=== PATIENT | female | born 1995 | race African-American/Black ===

== ENCOUNTER 2019-03-17 12:07 | Inpatient (IN) | payer OTHER, BC ==
--- NOTE | 2019-03-17 12:28 | PDOC ---
History of Present Illness - General Chief Complaint: Pain Stated Complaint: ABD PAIN Time Seen by Provider: 03/17/19 12:19 History Source: Patient Exam Limitations: No Limitations - History of Present Illness Initial Comments: 03/17/19 13:08 Ms. Fam is a 23 y/o woman with hx asthma p/w two days of nausea, vomiting, abdominal pain, and diarrhea. She reports that everything began at once, and that she has had difficulty keeping down any food or water. Her last meal was chicken and fries yesterday at 1400. She reports that the pain has been constant , 10/10, stabbing pain to the lower quadrants. She reports several episodes of non-bloody non-billious vomiting over the last two days, with 5 two days ago, and 3 yesterday. She reports decreased appetite. She denies any difference in her ability to tolerate solid versus liquid food intake. She endorses fatigue, and weakness in addition to abdominal pain. She denies any fevers, chills, fatigue, chest pain, difficulty breathing. She reports passing stool and flatus normally. She denies any dysuria, hematuria, increased frequency of urination, or pain with defecation. Of note, patient reports a history of HSV that she requests we do not discuss in front of her parents who do not know the diagnosis. Timing/Duration: other (two days) Severity: moderate, severe Associated Symptoms: reports: nausea/vomiting, syncope, weakness, other ( diarrhea) Past History - Past Medical History Allergies/Adverse Reactions: Allergies Allergy/AdvReac Type Severity Reaction Status Date / Time No Known Allergies Allergy Verified 03/17/19 12:14 Home Medications: Ambulatory Orders NK [No Known Home Medication] 03/17/19 COPD: No - Suicide/Smoking/Psychosocial Hx Smoking History: Never smoked Have you smoked in the past 12 months: No Information on smoking cessation initiated: No Hx Alcohol Use: No Drug/Substance Use Hx: No Review of Systems - Review of Systems Constitutional: Yes: See HPI, Chills, Loss of Appetite, Weakness. No: Diaphoresis, Fever, Night Sweats HEENTM: Yes: See HPI. No: Recent change in vision, Double Vision, Difficulty Swallowing Respiratory: Yes: See HPI. No: Cough, Orthopnea, Shortness of Breath, Stridor, Wheezing Cardiac (ROS): Yes: See HPI. No: Chest Pain, Edema, Lightheadedness, Palpitations ABD/GI: Yes: See HPI, Diarrhea, Nausea, Poor Appetite, Poor Fluid Intake, Vomiting, Abdominal cramping. No: Abdominal Distended, Abd. Pain w/ defecation , Blood Streaked Bowels, Difficulty Swallowing : Yes: See HPI. No: Burning, Dysuria, Discharge, Frequency, Hematuria Integumentary: Yes: See HPI. No: Rash Neurological: Yes: See HPI, Weakness. No: Headache, Numbness *Physical Exam - Vital Signs Last Vital Signs Temp Pulse Resp BP Pulse Ox 97.3 F L 62 16 116/76 100 03/17/19 12:10 03/17/19 12:10 03/17/19 12:10 03/17/19 12:10 03/17/19 12:10 - Physical Exam General Appearance: Yes: Nourished, Appropriately Dressed, Apparent Distress, Moderate Distress HEENT: positive: EOMI, KYLE Neck: positive: Trachea midline Respiratory/Chest: positive: Lungs Clear, Normal Breath Sounds. negative: Chest Tender, Respiratory Distress, Accessory Muscle Use, Labored Respiration, Rapid RR Cardiovascular: positive: Regular Rhythm, Regular Rate, S1, S2. negative: Edema , JVD, Murmur Gastrointestinal/Abdominal: positive: Normal Bowel Sounds, Tender, Flat, Soft. negative: Organomegaly, Pulsatile Mass, Increased Bowel Sounds, Decreased BS Integumentary: positive: Normal Color, Dry, Warm. negative: Rash Neurologic: positive: Motor Strength 5/5. negative: Sensory Deficit ED Treatment Course - LABORATORY CBC & Chemistry Diagram: 03/19/19 05:43 03/19/19 05:43 Medical Decision Making - Medical Decision Making 03/17/19 14:16 Ms. Armas is a 23 y/o woman presenting with 2 days of ongoing nausea, vomiting, diarrhea. Differential includes colitis, SBO, IBD, IBS. Colitis most likely given new onset diarrhea with nausea and left sided abdominal pain, but cannot rule out obstruction. Plan: IV normal saline bolus CBC w diff CMP CT abdomen pelvis Morphine 2 mg for pain Zofran 4 mg nausea Omeprazole 20 mg Dispo: Likely discharge - Colitis noted on CT abdomen/pelvis. Patient has remained nauseated and continues to vomit x4 in ED. If nausea, pain persists plan to admit to hospital , family uncomfortable with at home care given patient distress and ongoing symptoms. - Patient symptoms persist, plan for inpatient admission. *DC/Admit/Observation/Transfer Diagnosis at time of Disposition: Colitis Intractable vomiting Qualifiers: Vomiting type: unspecified Nausea presence: with nausea Qualified Code(s): R11.2 - Nausea with vomiting, unspecified - Discharge Dispostion Condition at time of disposition: Stable Decision to Admit order: Yes - Referrals - Patient Instructions - Post Discharge Activity
[2019-03-17] MEDS ORDERED: ONDANSETRON 4 MG/2 ML VIAL IVPB ONE (12:52)
[2019-03-17] MEDS ORDERED: ACETAMINOPHEN 1000 MG/100 ML VIAL (NON FORMULARY) IVPB ONE (12:52)
[2019-03-17] MEDS ORDERED: ACETAMINOPHEN INJECTION 100 ML IVPB ONE (12:58)
[2019-03-17] MEDS ORDERED: ONDANSETRON 4 MG/2 ML VIAL IVPUSH ONE (12:58)
[2019-03-17] MEDS ORDERED: ONDANSETRON 4 MG/2 ML VIAL ONE (12:58)
[2019-03-17] MEDS ORDERED: SODIUM CHLORIDE 0.9% 500 ML INFUS.BAG IV ONE (13:01)
[2019-03-17 13:18] LABS: BASO % 0.1 % (0-2.0); EOS % 0.1 % (0-4.5); HEMATOCRIT 44.6 % (32.4-45.2); HEMOGLOBIN 14.5 GM/dL (10.7-15.3); LYMPH % 2.1 % (8-40); MCH 27.5 pg (25.7-33.7); MCHC 32.4 g/dl (32.0-36.0); MEAN CELL VOLUME 84.7 fl (80-96); MEAN PLT VOLUME 7.8 fl (7.5-11.1); MONO % 8.1 % (3.8-10.2); NEUT % 89.6 % (42.8-82.8); PLATELET COUNT 309 K/MM3 (134-434); RBC 5.26 M/mm3 (3.60-5.2); RDW 13.9 % (11.6-15.6); WHITE BLOOD COUNT 14.6 K/mm3 (4.0-10.0)
[2019-03-17] MEDS ORDERED: morphine CARPU-JECT 2 MG/1 ML DISP.SYRIN IVPUSH ONE ×2 (13:21→21:17)
[2019-03-17] MEDS ORDERED: METOCLOPRAMIDE HCL INJECTION 10 MG/2 ML VIAL IVPUSH ONE (13:33)
[2019-03-17] MEDS ORDERED: morphine CARPU-JECT 4 MG/1 ML DISP.SYRIN IVPUSH ONE (13:33)
[2019-03-17] MEDS ORDERED: morphine SULFATE 4 MG/ML VIAL ONE (13:34)
[2019-03-17] MEDS ORDERED: METOCLOPRAMIDE HCL INJECTION 10 MG/2 ML VIAL ONE (13:34)
[2019-03-17 13:50] LABS: ALBUMIN 4.1 g/dl (3.4-5.0); BILIRUBIN,TOTAL 0.8 mg/dL (0.2-1); CALCIUM 9.2 mg/dL (8.5-10.1); POTASSIUM 4.6 mmol/L (3.5-5.1); TOT PROT 7.8 g/dl (6.4-8.2)
--- NOTE | 2019-03-17 15:06 | PDOC ---
Documentation entered by Pepper Acevedo SCRIBE, acting as scribe for Amna Morales MD. Amna Morales MD: This documentation has been prepared by the Curtis charles Sammi, SCRIBE, under my direction and personally reviewed by me in its entirety. I confirm that the documentation accurately reflects all work, treatment, procedures, and medical decision making performed by me. Attending Attestation - Resident Resident Name: RickyclementeBabar - ED Attending Attestation I have performed the following: I have examined & evaluated the patient, The case was reviewed & discussed with the resident, I agree w/resident's findings & plan, Exceptions are as noted - HPI HPI: 03/17/19 13:34 The patient is a 23 year old female, with no significant PMH, who presents to the emergency department for evaluation of 2 days of nausea, vomiting, and LLQ abdominal pain. The patient reports 3 episodes of non-bilious, non bloody vomit yesterday, and 9 episodes of vomit today. She also notes several episodes of non -bloody diarrhea. She also reports fatigue, chills, and subjective fever. The patient states her last oral intake was around 2pm yesterday. The patient denies chest pain, shortness of breath, headache and dizziness. Denies dysuria, frequency, urgency and hematuria. Allergies: NKA - Physicial Exam PE: 03/17/19 12:44 GENERAL: Riving in pain, uncomfortable ENT: (+)Dry mucous membranes. Ears normal, nares patent, oropharynx clear without exudates. . NECK: Normal range of motion, supple LUNGS: Breath sounds equal, clear to auscultation bilaterally. No wheezes, and no crackles. HEART:Regular rate and rhythm, normal S1 and S2 without murmur, rub or gallop. ABDOMEN: (+)Tender diffusely, mostly LLQ. Soft, normoactive bowel sounds. EXTREMITIES: Normal range of motion, no edema. NEUROLOGICAL: Cranial nerves II through XII grossly intact. Normal speech. No focal neurological deficits. SKIN: Warm, Dry, normal turgor, no rashes or lesions noted. - Medical Decision Making 03/17/19 15:05 23 yo F presenting to the ER with severe abdominal pain, nausea, vomiting, diarrhea Laboratory Tests 03/17/19 03/17/19 03/17/19 13:01 13:01 13:01 WBC 14.6 H Hgb 14.5 Hct 44.6 Plt Count 309 BUN 15.0 Creatinine 1.0 Serum , Qual Negative EKG - Twelve-lead EKG was performed and reviewed by me. There is normal sinus rhythm with a normal rate. The axis is normal. The intervals are normal. There are no ST or T wave abnormalities. Impression: Normal twelve-lead EKG 03/17/19 15:13 U/S: No sonographic evidence of torsion, non specific asymmetric blood flow and resistive index between the right and left ovaries, likely due to menstruation ovarian dominance IUD in lower uterine segment/cervix CT pending 03/17/19 16:50 Pt failed PO challenge Will CT Signed out to Dr Reyna
[2019-03-17 16:43] LABS: URINE APPEARANCE CLEAR; URINE BILIRUBIN NEGATIVE (NEGATIVE); URINE COLOR YELLOW; URINE GLUCOSE (UA) NEGATIVE (NEGATIVE); URINE KETONE 1+ (NEGATIVE); URINE LEUK ESTERASE NEGATIVE (NEGATIVE); URINE NITRITE NEGATIVE (NEGATIVE); URINE PROTEIN NEGATIVE (NEGATIVE); URINE UROBILINOGEN 0.2 mg/dL (0.2-1.0)
[2019-03-17] MEDS ORDERED: FAMOTIDINE 20 MG/50 ML IVPB 20 MG/50 ML MG IVPB ONE ×2 (20:37→20:51)
[2019-03-17] MEDS ORDERED: MAG HYDROX/AL HYDROX/SIMETH 30 ML UNIT-DOSE CUP PO ONE (20:40)
[2019-03-17] MEDS ORDERED: MAG HYDROX/AL HYDROX/SIMETH 30 ML UNIT-DOSE CUP ONE (20:51)
[2019-03-17] MEDS ORDERED: PIPERACILLIN/TAZOB 3.375 GM 3.375 GM in DEXTROSE 5%-WATER - 50 ML IVPB ONE (21:16)
[2019-03-17] MEDS ORDERED: PIPERACILLIN/TAZOB 3.375 GM 3.375 GM/50 ML BAG IVPB ONE (21:49)
[2019-03-17] MEDS ORDERED: MORPHINE SULFATE 2 MG/ML VIAL ONE (21:49)
[2019-03-17] MEDS ORDERED: LACTATED RINGERS SOLUTION 1,000 ML IV SCH (22:45)
--- NOTE | 2019-03-17 23:02 | HP ---
CHIEF COMPLAINT: Vomiting, diarrhea HISTORY OF PRESENT ILLNESS: The patient is a 23 year old female with PMHx of mild intermittent asthma who presents to the ED with two days of persistent nausea, vomiting, diarrhea, and abd pain. Symptoms began all at once. She has been unable to keep food or liquids down since onset of symptoms. Her last meal was 2 days ago. Pt complains of left-sided abd pain, as well as dizziness and "shaking" prior to her vomiting episodes. She denies any blood in her vomit or diarrhea. Pt has been afebrile. No sick contacts or recent travel. No recent alcohol or drug use. LMP 2 weeks ago. ER course was notable for: (1) CT abd: acute colitis, transvaginal US: no torsion (2) WBC 14.6 (3) Persistent pain s/p morphine, zofran, metoclopramide (4) Given one dose of zosyn Recent Travel: Denies PAST MEDICAL HISTORY: Mild intermittent asthma (no medications) PAST SURGICAL HISTORY: None Social History: Smoking: Denies Alcohol: Occasionally (last drink one week ago) Drugs: Occasional marijuana use (last use 3 days ago) Family History: Mother: HTN, hypercholesterol, DM, CAD Father: HTN Allergies: No Known Allergies Allergy (Verified 03/17/19 12:14) HOME MEDICATIONS: Home Medications Medication Instructions Recorded NK [No Known Home Medication] 03/17/19 REVIEW OF SYSTEMS CONSTITUTIONAL: Chills, generalized weakness, malaise, loss of appetite Absent: fever, diaphoresis, weight change HEENT: Absent: rhinorrhea, nasal congestion, throat pain, throat swelling, difficulty swallowing, mouth swelling, ear pain, eye pain, visual changes CARDIOVASCULAR: lightheadedness Absent: chest pain, syncope, palpitations, irregular heart rate, peripheral edema RESPIRATORY: Absent: cough, shortness of breath, dyspnea with exertion, orthopnea, wheezing, stridor, hemoptysis GASTROINTESTINAL: left-sided abdominal pain, nausea, vomiting, diarrhea Absent: abdominal distension, constipation, melena, hematochezia GENITOURINARY: Absent: dysuria, frequency, urgency, hesitancy, hematuria, flank pain, genital pain MUSCULOSKELETAL: Absent: myalgia, arthralgia, joint swelling, back pain, neck pain SKIN: Absent: rash, itching, pallor HEMATOLOGIC/IMMUNOLOGIC: Absent: easy bleeding, easy bruising, lymphadenopathy, frequent infections ENDOCRINE: Absent: unexplained weight gain, unexplained weight loss, heat intolerance, cold intolerance NEUROLOGIC: dizziness Absent: headache, focal weakness or paresthesias, unsteady gait, seizure, mental status changes, bladder or bowel incontinence PSYCHIATRIC: Absent: anxiety, depression, suicidal or homicidal ideation, hallucinations. PHYSICAL EXAMINATION Vital Signs - 24 hr 03/17/19 03/17/19 12:10 20:05 Temperature 97.3 F L 98.2 F Pulse Rate 62 Pulse Rate [ 84 Left] Respiratory 16 21 H Rate Blood Pressure 116/76 Blood Pressure 135/73 [Left] O2 Sat by Pulse 100 98 Oximetry (%) GENERAL: Awake, alert, and fully oriented. Pt laying on side in obvious pain. HEAD: Normal with no signs of trauma. EYES: Pupils equal, round and reactive to light, extraocular movements intact, sclera anicteric, conjunctiva clear. No lid lag. EARS, NOSE, THROAT: Ears normal, nares patent, oropharynx clear without exudates. Moist mucous membranes. NECK: Normal range of motion, supple without lymphadenopathy, JVD, or masses. LUNGS: Breath sounds equal, clear to auscultation bilaterally. No wheezes, and no crackles. No accessory muscle use. HEART: Slightly tachycardic, normal rhythm, normal S1 and S2 without murmur, rub or gallop. ABDOMEN: Left-sided tenderness and mild guarding, soft, not distended, normoactive bowel sounds, no rebound, no masses. No hepatomegaly or splenomegaly. MUSCULOSKELETAL: Normal range of motion at all joints. No bony deformities or tenderness. No CVA tenderness. UPPER EXTREMITIES: 2+ pulses, warm, well-perfused. No cyanosis. No clubbing. No peripheral edema. LOWER EXTREMITIES: 2+ pulses, warm, well-perfused. No calf tenderness. No peripheral edema. NEUROLOGICAL: Normal gait. PSYCHIATRIC: Cooperative. Good eye contact. Appropriate mood and affect. SKIN: Warm, dry, normal turgor, no rashes or lesions noted, normal capillary refill. Laboratory Results - last 24 hr 03/17/19 03/17/19 03/17/19 13:01 13:01 13:01 WBC 14.6 H RBC 5.26 H Hgb 14.5 Hct 44.6 MCV 84.7 MCH 27.5 MCHC 32.4 RDW 13.9 Plt Count 309 MPV 7.8 Absolute Neuts (auto) 13.1 H Neutrophils % 89.6 H Lymphocytes % 2.1 L Monocytes % 8.1 Eosinophils % 0.1 Basophils % 0.1 Nucleated RBC % 0 Sodium 143 Potassium 4.6 Chloride 113 H Carbon Dioxide 24 Anion Gap 6 L BUN 15.0 Creatinine 1.0 Est GFR (CKD-EPI)AfAm 90.68 Est GFR (CKD-EPI)NonAf 78.24 Random Glucose 123 H Calcium 9.2 Total Bilirubin 0.8 AST 20 ALT 28 Alkaline Phosphatase 49 Total Protein 7.8 Albumin 4.1 Serum , Qual Negative Urine Color Urine Appearance Urine pH Ur Specific Somers Urine Protein Urine Glucose (UA) Urine Ketones Urine Blood Urine Nitrite Urine Bilirubin Urine Urobilinogen Ur Leukocyte Esterase 03/17/19 16:03 WBC RBC Hgb Hct MCV MCH MCHC RDW Plt Count MPV Absolute Neuts (auto) Neutrophils % Lymphocytes % Monocytes % Eosinophils % Basophils % Nucleated RBC % Sodium Potassium Chloride Carbon Dioxide Anion Gap BUN Creatinine Est GFR (CKD-EPI)AfAm Est GFR (CKD-EPI)NonAf Random Glucose Calcium Total Bilirubin AST ALT Alkaline Phosphatase Total Protein Albumin Urine Color Yellow Urine Appearance Clear Urine pH 5.0 Ur Specific Somers 1.017 Urine Protein Negative Urine Glucose (UA) Negative Urine Ketones 1+ H Urine Blood Negative Urine Nitrite Negative Urine Bilirubin Negative Urine Urobilinogen 0.2 Ur Leukocyte Esterase Negative ASSESSMENT/PLAN: Pt is a 23 y/o F with PMHx of mild asthma who presents with intractable vomiting , diarrhea, nausea, and abdominal pain for 2 days. #Colitis Ceftriaxone 1g Q24 and metronidazole 500mg Q8 IV Tylenol prn for pain IV zofran prn for nausea Monitor CBC, CMP, and vitals F/u urine culture #Mild asthma Albuterol neb prn #IUD malposition (per CT pelvis) House Detective consult #DVT prophylaxis Lovenox 40mg SQ daily #FEN IVF NS @ 125 ml/hr Clear liquid diet, advance as tolerated Replete electrolytes as needed #Dispo Med surg Visit type - Emergency Visit Emergency Visit: Yes ED Registration Date: 03/17/19 Care time: The patient presented to the Emergency Department on the above date and was hospitalized for further evaluation of their emergent condition. - New Patient This patient is new to me today: Yes Date on this admission: 03/18/19 - Critical Care Critical Care patient: No
[2019-03-18 02:07] VITALS: BMI 22.4
[2019-03-18] MEDS ORDERED: ALBUTEROL SO4 0.083% IH SOL 2.5 MG/3 ML VIAL.NEB. NEB PRN (02:47)
[2019-03-18] MEDS ORDERED: ONDANSETRON 4 MG/2 ML VIAL IVPB PRN (02:55)
[2019-03-18] MEDS: SODIUM CHLORIDE 1,000 ML IV SCH ×2 (03:27→13:04)
--- NOTE | 2019-03-18 07:48 | PN ---
Teaching Attending Note Name of Resident: Catherine Bocanegra ATTENDING PHYSICIAN STATEMENT I saw and evaluated the patient. I reviewed the resident's note and discussed the case with the resident. I agree with the resident's findings and plan as documented. SUBJECTIVE: 23 year old woman previously healthy c/o 2 days of nausea, nonbloody vomiting, diarrhea ( over 10x day), left sided abdominal pain. Denied travel or fevers. + leukocytosis, CT abd/pelvis showed colon wall thickening c/w colitis. Unable to hold her food down. Denied using antibiotics prior to er visit. Neg bhcg in er. Given zosyn. OBJECTIVE: Last Vital Signs Temp Pulse Resp BP Pulse Ox 99.1 F 70 18 104/56 L 100 03/18/19 06:03 03/18/19 06:03 03/18/19 06:03 03/18/19 06:03 03/17/19 23:36 general- nontoxic heent- moist mucous membranes neck supple cor -s1+s2+ rrr abd - soft, bs+, benign skin - good turgor Abnormal Lab Results 03/17/19 03/17/19 03/17/19 13:01 13:01 16:03 WBC 14.6 H RBC 5.26 H Absolute Neuts (auto) 13.1 H Neutrophils % 89.6 H Lymphocytes % 2.1 L Chloride 113 H Anion Gap 6 L Random Glucose 123 H Urine Ketones 1+ H ASSESSMENT AND PLAN: #C-litis, leukocytoposis - will treat with antibiotics based on high frequency of in BMs -send stool culture, wbc, leukocytes, stool for cdiff pcr -flagyl -ceftriaxone -iv fluid hydration -zofran prn if nausea or vomiting -clear liquid diet -ekg #displaced IUD on abd/pelvis ct -consult obgyn for possible adjustment dvt ppx with scds
[2019-03-18 08:24] LABS: BASO % 0.4 % (0-2.0); EOS % 0.2 % (0-4.5); HEMATOCRIT 38.1 % (32.4-45.2); HEMOGLOBIN 12.4 GM/dL (10.7-15.3); LYMPH % 13.4 % (8-40); MCH 27.2 pg (25.7-33.7); MCHC 32.5 g/dl (32.0-36.0); MEAN CELL VOLUME 83.5 fl (80-96); MEAN PLT VOLUME 8.1 fl (7.5-11.1); MONO % 9.5 % (3.8-10.2); NEUT % 76.5 % (42.8-82.8); RBC 4.57 M/mm3 (3.60-5.2); RDW 13.8 % (11.6-15.6); WHITE BLOOD COUNT 11.7 K/mm3 (4.0-10.0)
--- NOTE | 2019-03-18 09:08 | PN ---
Progress Note (short form) - Note Progress Note: Patient is lying in bed with no acute distress, no nausea or vomiting. feels better. Mother and father at bedside. Vital Signs Temperature 99.1 F 03/18/19 06:03 Pulse Rate 70 03/18/19 06:03 Respiratory Rate 18 03/18/19 06:03 Blood Pressure 104/56 L 03/18/19 06:03 O2 Sat by Pulse Oximetry (%) 100 03/17/19 23:36 GENERAL: The patient is awake, alert, and fully oriented, in no acute distress. HEAD: Normal with no signs of trauma. EYES: PERRL, extraocular movements intact, sclera anicteric, conjunctiva clear. ENT: Ears normal, oropharynx clear without exudates, moist mucous membranes. NECK: Trachea midline, full range of motion, supple. LUNGS: Breath sounds equal, clear to auscultation bilaterally, no wheezes, no crackles, no accessory muscle use. HEART: Regular rate and rhythm, S1, S2 without murmur, rub or gallop. ABDOMEN: Soft, mild diffuse tenderness, ND, normoactive bowel sounds, no guarding, no rebound, no hepatosplenomegaly, no masses. EXTREMITIES: 2+ pulses, warm, well-perfused, no edema. NEUROLOGICAL: Cranial nerves II through XII grossly intact. Normal speech, gait not observed. PSYCH: Normal mood, normal affect. SKIN: Warm, dry, normal turgor, no rashes or lesions noted CBCD WBC 14.6 K/mm3 (4.0-10.0) H 03/17/19 13:01 RBC 5.26 M/mm3 (3.60-5.2) H 03/17/19 13:01 Hgb 14.5 GM/dL (10.7-15.3) 03/17/19 13:01 Hct 44.6 % (32.4-45.2) 03/17/19 13:01 MCV 84.7 fl (80-96) 03/17/19 13:01 MCHC 32.4 g/dl (32.0-36.0) 03/17/19 13:01 RDW 13.9 % (11.6-15.6) 03/17/19 13:01 Plt Count 309 K/MM3 (134-434) 03/17/19 13:01 MPV 7.8 fl (7.5-11.1) 03/17/19 13:01 CMP Sodium 143 mmol/L (136-145) 03/17/19 13:01 Potassium 4.6 mmol/L (3.5-5.1) 03/17/19 13:01 Chloride 113 mmol/L (98-107) H 03/17/19 13:01 Carbon Dioxide 24 mmol/L (21-32) 03/17/19 13:01 Anion Gap 6 MMOL/L (8-16) L 03/17/19 13:01 BUN 15.0 mg/dL (7-18) 03/17/19 13:01 Creatinine 1.0 mg/dL (0.55-1.3) 03/17/19 13:01 Random Glucose 123 mg/dL (74-106) H 03/17/19 13:01 Calcium 9.2 mg/dL (8.5-10.1) 03/17/19 13:01 Total Bilirubin 0.8 mg/dL (0.2-1) 03/17/19 13:01 AST 20 U/L (15-37) 03/17/19 13:01 ALT 28 U/L (13-61) 03/17/19 13:01 Alkaline Phosphatase 49 U/L (45-117) 03/17/19 13:01 Total Protein 7.8 g/dl (6.4-8.2) 03/17/19 13:01 Albumin 4.1 g/dl (3.4-5.0) 03/17/19 13:01 Current Medications Generic Name Dose Route Start Last Admin Trade Name Brittany PRN Reason Stop Dose Admin Acetaminophen 1,000 mg 03/18/19 02:36 Ofirmev Injection - IVPB Q6H PRN PAIN LEVEL 4 - 6 Albuterol Sulfate 1 amp 03/18/19 02:47 Ventolin 0.083% Nebulizer Soln - NEB Q8H PRN SHORT OF BREATH/WHEEZING Ceftriaxone Sodium 1 gm/ 50 mls @ 100 mls/hr 03/18/19 10:00 Dextrose IVPB DAILY LAURE Protocol Metronidazole 500 mg in 100 mls @ 100 mls/hr 03/18/19 10:00 Flagyl 500mg Premixed Ivpb - IVPB Q8H-IV LAURE Sodium Chloride 1,000 mls @ 125 mls/hr 03/18/19 03:00 03/18/19 03:27 Normal Saline - IV 125 mls/hr ASDIR LAURE Administration Ondansetron HCl 4 mg 03/18/19 02:55 Zofran Injection IVPB Q6H PRN NAUSEA Home Medications Medication Instructions Recorded NK [No Known Home Medication] 03/17/19 Cat Scan: Report Reviewed ( Final Report CT ABDOMEN & PELVIS CT WITH CONTR Show Printer-Friendly Version Patient Name: [place] Che : Apr-1995 ID: [id number] Study Date: 17-Mar-2019 18:33 [facility] Name: [facility] DEPARTMENT OF RADIOLOGY Phys: Kandy Gill RESIDENT : 1995 Age: 23 Sex: F [facility] Acct: [id number] Loc: [address] Exam Date: 03/17/19 Status: [place] [address] Unit Number: [id number] EXAM#: TYPE/EXAM: RESULT: [id number] CT/ABDOMEN PELVIS CT WITH CONTR Abdomen and pelvis CT with contrast Clinical information: left abdominal TTP, ? colitis; not tolerating po Multiplanar imaging was performed following the intravenous administration of nonionic contrast. Enteric contrast was not administered. No evidence of pneumoperitoneum, abscess, free intraperitoneal fluid or bowel obstruction. Bowel evaluation especially of the colon is very limited due to lack of distention. There is possible mild diffuse colonic wall thickening. No definite pericolonic edema or fluid accumulation is seen. There is no gross adnexal pathology allowing for contiguous obscuring nonopacified small bowel loops. The urinary bladder demonstrates no obvious intrinsic or extrinsic CT abnormality. No gross noncontrast small bowel pathology is identified. There is possible partial visualization of the appendix which demonstrates no gross abnormality. No obvious indirect CT signs of acute appendicitis are noted. There is no obvious acute diverticulitis. As also described on recently performed sonography an IUD is seen in place at the level of the lower uterine segment extending into the cervical canal consistent with malposition. The liver, spleen, pancreas , gallbladder, adrenal glands and kidneys demonstrate no discrete abnormality. There is no aortic aneurysm. No gross lymphadenopathy is identified. Numerous bilateral buttock subcutaneous densities are seen which may be on a postsurgical basis. Correlate clinically. The visualized osseous structures demonstrate no obvious CT evidence of acute pathology. Impression: Bowel evaluation is very limited due to lack of distention. There is possible mild diffuse concentric colonic wall thickening on the basis of acute colitis (versus representing artifactual mild thickening due to underdistention). IUD malposition. Reported By: Major Regan MD 01/29 Kandy Gill Technologist: Shamar Ayala Transcribed Date /Time: 03/17/192102 Curriculum Development Specialist: Major Regan Printed Date/Time: By: Signed by: Major Regan Signed on: 17-Mar-2019 21:04) Assessment and plan: Patient is a 23 year old female no significant PMHx presented with 2 days hx of nausea, nonbloody vomiting, diarrhea (over 10x day), with left sided abdominal pain. Denied any travel hx. 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 DVT px: early Ambulation Visit type - Emergency Visit Emergency Visit: Yes ED Registration Date: 03/18/19 Care time: The patient presented to the Emergency Department on the above date and was hospitalized for further evaluation of their emergent condition. - New Patient This patient is new to me today: Yes Date on this admission: 03/18/19 - Critical Care Critical Care patient: No - Discharge Referral Referred to [facility] No
[2019-03-18 09:15] LABS: PLATELET COUNT 285 K/MM3 (134-434)
[2019-03-18 09:16] LABS: ALBUMIN 3.4 g/dl (3.4-5.0); BILIRUBIN,TOTAL 0.8 mg/dL (0.2-1); BLOOD UREA NITROGEN 10.2 mg/dL (7-18); CALCIUM 8.3 mg/dL (8.5-10.1); CREATININE 0.8 mg/dL (0.55-1.3); MAGNESIUM 2.1 mg/dL (1.8-2.4); PHOSPHOROUS 3.8 mg/dL (2.5-4.9); POTASSIUM 3.9 mmol/L (3.5-5.1); TOT PROT 6.6 g/dl (6.4-8.2)
[2019-03-18] MEDS ORDERED: cefTRIAXone SODIUM 1 GM VIAL ONE (09:43)
[2019-03-18] MEDS ORDERED: DEXTROSE 5%-WATER - 50 ML IVPB ONE (09:44)
[2019-03-18] MEDS ORDERED: ENOXAPARIN NA (PORCINE) 40 MG/0.4 ML DISP.SYRIN SQ SCH (10:00)
--- NOTE | 2019-03-18 10:23 | CONSULT ---
Consult - text type - Consultation Consultation Note: 23yo G0 here with abdominal pain. Of note, CT scan showed IUD in the improper placed. TVUS confirmed that the IUD was in the lower uterine segment. Patient is without uterine cramping. States that this is her second Mirena IUD and that the initial one, was also placed improperly and had to be removed. She is unable to recall her OBGYN's name, but they are located within the [place]. Otherwise, she has been happy with her Mirena iUD. I recommend she follow up with her outpatient OBGYN and discuss replacing the IUD, ideally under ultrasound guidance to confirm correct placement/position at the uterine fundus. Nothing further to do at this time, IUDs cannot be "adjusted" at bedside. Bev Calix MD
[2019-03-18] MEDS: CEFTRIAXONE 1 GM in DEXTROSE 5%-WATER - 50 ML IVPB SCH (11:16)
--- NOTE | 2019-03-18 11:52 | PN ---
Progress Note (short form) - Note Progress Note: Vital Signs Temperature 98.8 F 03/18/19 10:00 Pulse Rate 73 03/18/19 10:00 Respiratory Rate 18 03/18/19 10:00 Blood Pressure 116/71 03/18/19 10:00 O2 Sat by Pulse Oximetry (%) 100 03/17/19 23:36 GENERAL: The patient is awake, alert, and fully oriented, in no acute distress. HEAD: Normal with no signs of trauma. EYES: PERRL, extraocular movements intact, sclera anicteric, conjunctiva clear. No ptosis. ENT: Ears normal, nares patent, oropharynx clear without exudates, moist mucous membranes. NECK: Trachea midline, full range of motion, supple. LUNGS: Breath sounds equal, clear to auscultation bilaterally, no wheezes, no crackles, no accessory muscle use. HEART: Regular rate and rhythm, S1, S2 without murmur, rub or gallop. ABDOMEN: Soft, nontender, nondistended, normoactive bowel sounds, no guarding, no rebound, no hepatosplenomegaly, no masses. EXTREMITIES: 2+ pulses, warm, well-perfused, no edema. NEUROLOGICAL: Cranial nerves II through XII grossly intact. Normal speech, gait not observed. PSYCH: Normal mood, normal affect. SKIN: Warm, dry, normal turgor, no rashes or lesions noted CBCD WBC 11.7 K/mm3 (4.0-10.0) H 03/18/19 07:30 RBC 4.57 M/mm3 (3.60-5.2) 03/18/19 07:30 Hgb 12.4 GM/dL (10.7-15.3) 03/18/19 07:30 Hct 38.1 % (32.4-45.2) 03/18/19 07:30 MCV 83.5 fl (80-96) 03/18/19 07:30 MCHC 32.5 g/dl (32.0-36.0) 03/18/19 07:30 RDW 13.8 % (11.6-15.6) 03/18/19 07:30 Plt Count 285 K/MM3 (134-434) 03/18/19 07:30 MPV 8.1 fl (7.5-11.1) 03/18/19 07:30 CMP Sodium 142 mmol/L (136-145) 03/18/19 07:30 Potassium 3.9 mmol/L (3.5-5.1) 03/18/19 07:30 Chloride 108 mmol/L (98-107) H 03/18/19 07:30 Carbon Dioxide 25 mmol/L (21-32) 03/18/19 07:30 Anion Gap 10 MMOL/L (8-16) 03/18/19 07:30 BUN 10.2 mg/dL (7-18) 03/18/19 07:30 Creatinine 0.8 mg/dL (0.55-1.3) 03/18/19 07:30 Random Glucose 84 mg/dL (74-106) 03/18/19 07:30 Calcium 8.3 mg/dL (8.5-10.1) L 03/18/19 07:30 Total Bilirubin 0.8 mg/dL (0.2-1) 03/18/19 07:30 AST 13 U/L (15-37) L 03/18/19 07:30 ALT 22 U/L (13-61) 03/18/19 07:30 Alkaline Phosphatase 42 U/L (45-117) L 03/18/19 07:30 Total Protein 6.6 g/dl (6.4-8.2) 03/18/19 07:30 Albumin 3.4 g/dl (3.4-5.0) 03/18/19 07:30 Current Medications Generic Name Dose Route Start Last Admin Trade Name Freq PRN Reason Stop Dose Admin Acetaminophen 1,000 mg 03/18/19 02:36 Ofirmev Injection - IVPB Q6H PRN PAIN LEVEL 4 - 6 Albuterol Sulfate 1 amp 03/18/19 02:47 Ventolin 0.083% Nebulizer Soln - NEB Q8H PRN SHORT OF BREATH/WHEEZING Ceftriaxone Sodium 1 gm/ 50 mls @ 100 mls/hr 03/18/19 10:00 03/18/19 11:16 Dextrose IVPB 100 mls/hr DAILY LAURE Administration Protocol Metronidazole 500 mg in 100 mls @ 100 mls/hr 03/18/19 10:00 03/18/19 09:51 Flagyl 500mg Premixed Ivpb - IVPB 100 mls/hr Q8H-IV LAURE Administration Sodium Chloride 1,000 mls @ 125 mls/hr 03/18/19 03:00 03/18/19 03:27 Normal Saline - IV 125 mls/hr ASDIR LAURE Administration Home Medications Medication Instructions Recorded NK [No Known Home Medication] 03/17/19 Urine Test Results Urine Color Yellow 03/17/19 16:03 Urine Appearance Clear 03/17/19 16:03 Urine pH 5.0 (5.0-8.0) 03/17/19 16:03 Ur Specific [place] 1.017 (1.010-1.035) 03/17/19 16:03 Urine Protein Negative (NEGATIVE) 03/17/19 16:03 Urine Glucose (UA) Negative (NEGATIVE) 03/17/19 16:03 Urine Ketones 1+ (NEGATIVE) H 03/17/19 16:03 Urine Blood Negative (NEGATIVE) 03/17/19 16:03 Urine Nitrite Negative (NEGATIVE) 03/17/19 16:03 Urine Bilirubin Negative (NEGATIVE) 03/17/19 16:03 Ur Leukocyte Esterase Negative (NEGATIVE) 03/17/19 16:03 #C-litis, leukocytoposis - will treat with antibiotics based on high frequency of in BMs -send stool culture, wbc, leukocytes, stool for cdiff pcr -flagyl -ceftriaxone -iv fluid hydration -zofran prn if nausea or vomiting -clear liquid diet -ekg #displaced IUD on abd/pelvis ct -consult obgyn for possible adjustment dvt ppx with scds
--- NOTE | 2019-03-18 14:41 | EKG ---
Test Reason : Blood Pressure : / mmHG Vent. Rate : 075 BPM Atrial Rate : 075 BPM P-R Int : 130 ms QRS Dur : 088 ms QT Int : 406 ms P-R-T Axes : 064 065 061 degrees QTc Int : 453 ms NORMAL SINUS RHYTHM NORMAL ECG NO PREVIOUS ECGS AVAILABLE Confirmed by MD GISEL, PASTORA ([id number]) on 03/18/2019 2:41:10 PM Referred By: Confirmed By:PASTORA BATRES MD
[2019-03-18] MEDS: ACETAMINOPHEN 1000 MG/100 ML VIAL (NON FORMULARY) IVPB PRN (16:04)
[2019-03-19] MEDS: SODIUM CHLORIDE 1,000 ML IV SCH ×2 (05:55→17:22)
[2019-03-19 06:37] LABS: BASO % 0.5 % (0-2.0); EOS % 2.2 % (0-4.5); HEMATOCRIT 37.8 % (32.4-45.2); HEMOGLOBIN 12.4 GM/dL (10.7-15.3); LYMPH % 27.6 % (8-40); MCH 27.5 pg (25.7-33.7); MCHC 32.7 g/dl (32.0-36.0); MEAN CELL VOLUME 84.1 fl (80-96); MEAN PLT VOLUME 8.4 fl (7.5-11.1); MONO % 16.9 % (3.8-10.2); NEUT % 52.8 % (42.8-82.8); PLATELET COUNT 240 K/MM3 (134-434); RDW 13.5 % (11.6-15.6); WHITE BLOOD COUNT 5.1 K/mm3 (4.0-10.0)
[2019-03-19] MEDS: ACETAMINOPHEN 1000 MG/100 ML VIAL (NON FORMULARY) IVPB PRN (06:41)
[2019-03-19 06:56] LABS: ALBUMIN 3.2 g/dl (3.4-5.0); BILIRUBIN,TOTAL 0.5 mg/dL (0.2-1); BLOOD UREA NITROGEN 8.7 mg/dL (7-18); CREATININE 0.8 mg/dL (0.55-1.3); POTASSIUM 3.7 mmol/L (3.5-5.1); TOT PROT 5.8 g/dl (6.4-8.2)
[2019-03-19] MEDS ORDERED: KETOROLAC TROMETHAMINE 30 MG/1 ML VIAL IM ONE (08:03)
[2019-03-19] MEDS ORDERED: KETOROLAC TROMETHAMINE 30 MG/1 ML VIAL IVPUSH ONE ×2 (08:25→09:07)
[2019-03-19] MEDS ORDERED: FAMOTIDINE 20 MG/50 ML IVPB 20 MG/50 ML MG IVPB ONE (08:45)
[2019-03-19] MEDS ORDERED: PANTOPRAZOLE SODIUM 40 MG VIAL IVPUSH ONE (09:07)
[2019-03-19] MEDS ORDERED: MORPHINE SULFATE 2 MG/ML VIAL IVPUSH ONE (09:10)
[2019-03-19] MEDS ORDERED: ONDANSETRON 4 MG/2 ML VIAL IVPB SCH ×2 (09:15→10:00)
[2019-03-19] MEDS ORDERED: MORPHINE SULFATE 2 MG/ML VIAL IVPUSH PRN (09:45)
[2019-03-19] MEDS ORDERED: morphine CARPU-JECT 4 MG/1 ML DISP.SYRIN IVPUSH ONE (09:52)
[2019-03-19] MEDS ORDERED: morphine CARPU-JECT 2 MG/1 ML DISP.SYRIN IVPUSH ONE (09:53)
[2019-03-19] MEDS ORDERED: cefTRIAXone SODIUM 1 GM VIAL ONE (13:03)
[2019-03-19] MEDS ORDERED: DEXTROSE 5%-WATER - 50 ML IVPB ONE (13:04)
[2019-03-19] MEDS: MORPHINE SULFATE 2 MG/ML VIAL IVPUSH PRN ×2 (13:06→17:47)
[2019-03-19] MEDS: CEFTRIAXONE 1 GM in DEXTROSE 5%-WATER - 50 ML IVPB SCH (13:06)
--- NOTE | 2019-03-19 14:03 | CON.GI ---
Consult Consult Specialty:: Gastroenterology ( covering the [facility] GI service) Referred by:: Victor Hugo Cannon MD Reason for Consultation:: Diarrhea - History of Present Illness Chief Complaint: abdominal pain and diarrhea History of Present Illness: 23F developed abdominal pain and vomiting 2 days ago. She suspect that it was related to cheese that she had in [place] with a take out fried chicken meal. She subsequently developed diarrhea with 10 loose nonbloody BMs yesterday. She denies any foreign travel or recent antibiotic usage. No one else at home has these symptoms. Her pain is diffuse and colicky. She also has epigastric burning and acid reflux. NO FH of IBD or GI malignancy. 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 Place of : [employer] History of Recent Travel: No Home Medications - Allergies Allergies/Adverse Reactions: Allergies Allergy/AdvReac Type Severity Reaction Status Date / Time No Known Allergies Allergy Verified 03/17/19 12:14 - Home Medications Home Medications: Ambulatory Orders NK [No Known Home Medication] 03/17/19 Family Disease History - Family Disease History Family Disease History: Heart Disease: Mother (CAD, HTN), Other: Father (HTN, gout) Review of Systems - Review of Systems Constitutional: reports: Loss of Appetite, Malaise, Weakness Eyes: reports: No Symptoms HENT: reports: No Symptoms Neck: reports: No Symptoms Cardiovascular: reports: No Symptoms Respiratory: reports: No Symptoms Gastrointestinal: reports: Abdominal Pain, Bloating, Diarrhea, Indigestion, Vomiting, Other (acid reflux) Physical Exam-GI Vital Signs: Vital Signs Temperature 98.3 F 03/19/19 09:28 Pulse Rate 110 H 03/19/19 09:28 Respiratory Rate 22 H 03/19/19 09:28 Blood Pressure 118/82 03/19/19 09:28 O2 Sat by Pulse Oximetry (%) 100 03/18/19 09:00 CBC,CMP WBC 5.1 K/mm3 (4.0-10.0) 03/19/19 05:43 RBC 4.50 M/mm3 (3.60-5.2) 03/19/19 05:43 Hgb 12.4 GM/dL (10.7-15.3) 03/19/19 05:43 Hct 37.8 % (32.4-45.2) 03/19/19 05:43 MCV 84.1 fl (80-96) 03/19/19 05:43 MCH 27.5 pg (25.7-33.7) 03/19/19 05:43 MCHC 32.7 g/dl (32.0-36.0) 03/19/19 05:43 RDW 13.5 % (11.6-15.6) 03/19/19 05:43 Plt Count 240 K/MM3 (134-434) 03/19/19 05:43 MPV 8.4 fl (7.5-11.1) 03/19/19 05:43 Absolute Neuts (auto) 2.7 K/mm3 (1.5-8.0) 03/19/19 05:43 Neutrophils % 52.8 % (42.8-82.8) D 03/19/19 05:43 Lymphocytes % 27.6 % (8-40) D 03/19/19 05:43 Monocytes % 16.9 % (3.8-10.2) H 03/19/19 05:43 Eosinophils % 2.2 % (0-4.5) D 03/19/19 05:43 Basophils % 0.5 % (0-2.0) 03/19/19 05:43 Nucleated RBC % 0 % (0-0) 03/19/19 05:43 Sodium 142 mmol/L (136-145) 03/19/19 05:43 Potassium 3.7 mmol/L (3.5-5.1) 03/19/19 05:43 Chloride 111 mmol/L (98-107) H 03/19/19 05:43 Carbon Dioxide 27 mmol/L (21-32) 03/19/19 05:43 Anion Gap 4 MMOL/L (8-16) L 03/19/19 05:43 BUN 8.7 mg/dL (7-18) 03/19/19 05:43 Creatinine 0.8 mg/dL (0.55-1.3) 03/19/19 05:43 Est GFR (CKD-EPI)AfAm 118.76 03/19/19 05:43 Est GFR (CKD-EPI)NonAf 102.47 03/19/19 05:43 Random Glucose 81 mg/dL (74-106) 03/19/19 05:43 Calcium 8.0 mg/dL (8.5-10.1) L 03/19/19 05:43 Phosphorus 3.8 mg/dL (2.5-4.9) 03/18/19 07:30 Magnesium 2.1 mg/dL (1.8-2.4) 03/18/19 07:30 Total Bilirubin 0.5 mg/dL (0.2-1) 03/19/19 05:43 AST 21 U/L (15-37) 03/19/19 05:43 ALT 33 U/L (13-61) 03/19/19 05:43 Alkaline Phosphatase 37 U/L (45-117) L 03/19/19 05:43 C-Reactive Protein 1.6 MG/DL (0.00-0.3) H 03/18/19 07:30 Total Protein 5.8 g/dl (6.4-8.2) L 03/19/19 05:43 Albumin 3.2 g/dl (3.4-5.0) L 03/19/19 05:43 Serum , Qual Negative 03/17/19 13:01 Current Medications Generic Name Dose Route Start Last Admin Trade Name Brittany PRN Reason Stop Dose Admin Acetaminophen 1,000 mg 03/18/19 02:36 03/19/19 06:41 Ofirmev Injection - IVPB 1,000 mg Q6H PRN Administration PAIN LEVEL 4 - 6 Albuterol Sulfate 1 amp 03/18/19 02:47 Ventolin 0.083% Nebulizer Soln - NEB Q8H PRN SHORT OF BREATH/WHEEZING Ceftriaxone Sodium 1 gm/ 50 mls @ 100 mls/hr 03/18/19 10:00 03/19/19 13:06 Dextrose IVPB 100 mls/hr DAILY LAURE Administration Protocol Metronidazole 500 mg in 100 mls @ 100 mls/hr 03/18/19 10:00 03/19/19 09:45 Flagyl 500mg Premixed Ivpb - IVPB Not Given Q8H-IV LAURE Sodium Chloride 1,000 mls @ 125 mls/hr 03/18/19 03:00 03/19/19 05:55 Normal Saline - IV 125 mls/hr ASDIR LAURE Administration Morphine Sulfate 2 mg 03/19/19 09:52 03/19/19 13:06 Morphine Sulfate IVPUSH 2 mg Q3H PRN Administration PAIN LEVEL 6-10 Ondansetron HCl 4 mg 03/19/19 14:00 Zofran Injection IVPB Q4H-IV LAURE Constitutional: Yes: Anxious, Mild Distress Eyes: Yes: Conjunctiva Clear HENT: Yes: Atraumatic Neck: Yes: Supple Cardiovascular: Yes: Regular Rate and Rhythm Respiratory: Yes: CTA Bilaterally Gastrointestinal Inspection: Yes: Other (lower abdominal tattoo) ...Auscultate: Yes: Hyperactive Bowel Sounds ...Palpate: Yes: Tenderness (diffuse nonlocalizing, no rebound) ...Rectal Exam: Yes: Deferred (declined) Labs: CBC, BMP 03/19/19 05:43 03/19/19 05:43 Imaging - Results Cat Scan: Report Reviewed ( Final Report CT ABDOMEN & PELVIS CT WITH CONTR Show Printer-Friendly Version Patient Name: Maine Armas : Apr-1995 ID: [id number] Study Date: 17-Mar-2019 18:33 Junaid Pavilideandre Name: [facility] Phys: Kandy Gill RESIDENT : 1995 Age: 23 Sex: F [facility] Acct: [id number] Loc: [address] Exam Date: 03/17/19 Status[place] [id number] Unit Number: [id number] EXAM#: TYPE/EXAM: RESULT: [id number] CT/ABDOMEN PELVIS CT WITH CONTR Abdomen and pelvis CT with contrast Clinical information: left abdominal TTP, ? colitis; not tolerating po Multiplanar imaging was performed following the intravenous administration of nonionic contrast. Enteric contrast was not administered. No evidence of pneumoperitoneum, abscess, free intraperitoneal fluid or bowel obstruction. Bowel evaluation especially of the colon is very limited due to lack of distention. There is possible mild diffuse colonic wall thickening. No definite pericolonic edema or fluid accumulation is seen. There is no gross adnexal pathology allowing for contiguous obscuring nonopacified small bowel loops. The urinary bladder demonstrates no obvious intrinsic or extrinsic CT abnormality. No gross noncontrast small bowel pathology is identified. There is possible partial visualization of the appendix which demonstrates no gross abnormality. No obvious indirect CT signs of acute appendicitis are noted. There is no obvious acute diverticulitis. As also described on recently performed sonography an IUD is seen in place at the level of the lower uterine segment extending into the cervical canal consistent with malposition. The liver, spleen, pancreas , gallbladder, adrenal glands and kidneys demonstrate no discrete abnormality. There is no aortic aneurysm. No gross lymphadenopathy is identified. Numerous bilateral buttock subcutaneous densities are seen which may be on a postsurgical basis. Correlate clinically. The visualized osseous structures demonstrate no obvious CT evidence of acute pathology. Impression: Bowel evaluation is very limited due to lack of distention. There is possible mild diffuse concentric colonic wall thickening on the basis of acute colitis (versus representing artifactual mild thickening due to underdistention). IUD malposition. Reported By: Maojr Regan MD 03/17/192102 Kandy Gill Technologist: Shamar Ayala Transcribed Date/Time: 03/17/192102 Digester Operator Helper: Major Regan Printed Date/Time: By: Signed by: Major Regan Signed on: 2018 21:04) Problem List - Problems (1) Diarrhea Code(s): R19.7 - DIARRHEA, UNSPECIFIED (2) Acid reflux Code(s): K21.9 - GASTRO-ESOPHAGEAL REFLUX DISEASE WITHOUT ESOPHAGITIS (3) Abdominal pain Code(s): R10.9 - UNSPECIFIED ABDOMINAL PAIN (4) Colitis Code(s): K52.9 - NONINFECTIVE GASTROENTERITIS AND COLITIS, UNSPECIFIED (5) Intractable vomiting Code(s): R11.10 - VOMITING, UNSPECIFIED Qualifiers: Vomiting type: unspecified Nausea presence: with nausea Qualified Code(s) : R11.2 - Nausea with vomiting, unspecified Assessment/Plan Impression: - Infectious colitis, likely the Norovirus but will need to screen for other etiologies Plan: -- IV hydration -- Screen for pathogens. She did have a hamburger but only after she was already ill. -- Keep diet lactose free for 7 days -- Analgesics prn
--- NOTE | 2019-03-19 15:20 | PN ---
Physical Exam: SUBJECTIVE: Patient seen and examined at the bedside. Pt was disgruntled and seemed to be in excrutiating pain in her abdomen and vomiting nbnb emesis. Pt received 1mg Morphine and ketorolac as well as tylenol. Pt felt better after and vitals remained stable. Spoke to family at bedside and discussed the plan with it. OBJECTIVE: Vital Signs Period Temp Pulse Resp BP Sys/Parkinson Pulse Ox Last 24 Hr 98.0 F-99.0 F 60-110 18-22 109-136/65-86 GENERAL: The patient is awake, alert, and fully oriented, in no acute distress. HEAD: Normal with no signs of trauma. EYES: extraocular movements intact, sclera anicteric, conjunctiva clear. No ptosis. NECK: supple. LUNGS: Breath sounds equal, clear to auscultation bilaterally, no wheezes, no crackles, no accessory muscle use. HEART: Regular rate and rhythm, S1, S2 without murmur, rub or gallop. ABDOMEN: Soft, tender mainly in the mid to left epigastrium, nondistended, normoactive bowel sounds, no rebound, no masses. EXTREMITIES: 2+ pulses, warm, well-perfused, no edema. NEUROLOGICAL: Cranial nerves II through XII grossly intact. Normal speech, gait not observed. PSYCH: screaming obscenities and grimacing in pain out of proportion. SKIN: Warm, dry, no rashes or lesions noted Laboratory Results - last 24 hr 03/19/19 03/19/19 05:43 05:43 WBC 5.1 RBC 4.50 Hgb 12.4 Hct 37.8 MCV 84.1 MCH 27.5 MCHC 32.7 RDW 13.5 Plt Count 240 MPV 8.4 Absolute Neuts (auto) 2.7 Neutrophils % 52.8 D Lymphocytes % 27.6 D Monocytes % 16.9 H Eosinophils % 2.2 D Basophils % 0.5 Nucleated RBC % 0 Sodium 142 Potassium 3.7 Chloride 111 H Carbon Dioxide 27 Anion Gap 4 L BUN 8.7 Creatinine 0.8 Est GFR (CKD-EPI)AfAm 118.76 Est GFR (CKD-EPI)NonAf 102.47 Random Glucose 81 Calcium 8.0 L Total Bilirubin 0.5 AST 21 ALT 33 Alkaline Phosphatase 37 L Total Protein 5.8 L Albumin 3.2 L Active Medications Generic Name Dose Route Start Last Admin Trade Name Freq PRN Reason Stop Dose Admin Acetaminophen 1,000 mg 03/18/19 02:36 03/19/19 06:41 Ofirmev Injection - IVPB 1,000 mg Q6H PRN Administration PAIN LEVEL 4 - 6 Albuterol Sulfate 1 amp 03/18/19 02:47 Ventolin 0.083% Nebulizer Soln - NEB Q8H PRN SHORT OF BREATH/WHEEZING Ceftriaxone Sodium 1 gm/ 50 mls @ 100 mls/hr 03/18/19 10:00 03/19/19 13:06 Dextrose IVPB 100 mls/hr DAILY LAURE Administration Protocol Metronidazole 500 mg in 100 mls @ 100 mls/hr 03/18/19 10:00 03/19/19 09:45 Flagyl 500mg Premixed Ivpb - IVPB Not Given Q8H-IV LAURE Sodium Chloride 1,000 mls @ 125 mls/hr 03/18/19 03:00 03/19/19 05:55 Normal Saline - IV 125 mls/hr ASDIR LAURE Administration Morphine Sulfate 2 mg 03/19/19 09:52 03/19/19 13:06 Morphine Sulfate IVPUSH 2 mg Q3H PRN Administration PAIN LEVEL 6-10 Ondansetron HCl 4 mg 03/19/19 14:00 Zofran Injection IVPB Q4H-IV LAURE Pantoprazole Sodium 40 mg 03/19/19 22:00 Protonix Iv IVPUSH BID LAURE Images: - CT abd/pelvis shows concentric colonic wall thickening from acute colitis - IUD malposition ASSESSMENT/PLAN: The patient is a 23 y/o F with PMHx of mild intermittent asthma who presented to the ED with two days of persistent nausea, vomiting, diarrhea, and abd pain. Symptoms began all at once. Pt complains of diffuse abd pain more in the left side, as well as dizziness and "shaking" prior to her vomiting episodes. She denies any blood in her vomit or diarrhea. Pt has reported 10 nonbloody BM's since yesterday. Pt has been afebrile. No sick contacts or recent travel. No recent alcohol or drug use. LMP 2 weeks ago. #Colitis - Pt on IV flagyl, rocephin (day 2), IVF zofran prn for nausea, and soft diet. Dr. Lee- recommended to put her on lactose free diet for 7 days since her last meal had cheese on it and possible cause for this excruciating pain. - Also norovirus stool PCR ordered, stool O&P, CRP ordered will wait for results. - Pt given morphine 1mg IV push q4hs PRN for pain, tylenol PRN, and one dose of ketorolac 30mg IM was given. #IUD malposition -OBGYN (Dr. Calix) was kind enough to see this patient and she recommends f/u as an outpatient with her OBGYN to replace the IUD. - G/C/trich pending - UA cx negative. #Asthma - c/w albuterol as prescribed. - no acute exacerbations - SaO2 has been normal throughout admission #FEN - IV NS @ 125ml/hr - will monitor lytes - lactose free diet for 7 days, clear liquid diet. Prophylaxis: DVT: SCD's ordered to be placed b/l, low risk for DVT. Dispo: spoke to parents and they are okay with our plan moving forward treating her colitis. Visit type - Emergency Visit Emergency Visit: No - New Patient This patient is new to me today: Yes Date on this admission: 03/19/19 - Critical Care Critical Care patient: No - Discharge Referral Referred to [facility] Med [facility] No
[2019-03-19] MEDS: ONDANSETRON 4 MG/2 ML VIAL IVPB SCH ×2 (15:23→18:40)
--- NOTE | 2019-03-19 17:34 | PN ---
Teaching Attending Note Name of Resident: Victor Hugo Cannon ATTENDING PHYSICIAN STATEMENT I saw and evaluated the patient. I reviewed the resident's note and discussed the case with the resident. I agree with the resident's findings and plan as documented. SUBJECTIVE: Patient is c/o having severe diffuse abdominal pain, patient is in tears. dry heaving, throwing up, with diarrhea without any foul smell. OBJECTIVE: Vital Signs Temperature 98.0 F 03/19/19 13:00 Pulse Rate 64 03/19/19 13:00 Respiratory Rate 20 03/19/19 13:00 Blood Pressure 136/78 03/19/19 13:00 O2 Sat by Pulse Oximetry (%) 100 03/18/19 09:00 GENERAL: The patient is awake, alert, and fully oriented, in mild distress. HEAD: Normal with no signs of trauma. EYES: PERRL, extraocular movements intact, sclera anicteric, conjunctiva clear. ENT: Ears normal, oropharynx clear without exudates, moist mucous membranes. NECK: Trachea midline, full range of motion, supple. LUNGS: Breath sounds equal, clear to auscultation bilaterally, no wheezes, no crackles, no accessory muscle use. HEART: Regular rate and rhythm, S1, S2 without murmur, rub or gallop. ABDOMEN: Soft,diffuse abdominal pain, ND, normoactive bowel sounds, positive voluntary guarding, no rebound, no hepatosplenomegaly, no masses. EXTREMITIES: 2+ pulses, warm, well-perfused, no edema. NEUROLOGICAL: Cranial nerves II through XII grossly intact. Normal speech, gait not observed. PSYCH: Normal mood, normal affect. SKIN: Warm, dry, normal turgor, no rashes, patient has tattoos. CBCD WBC 5.1 K/mm3 (4.0-10.0) 03/19/19 05:43 RBC 4.50 M/mm3 (3.60-5.2) 03/19/19 05:43 Hgb 12.4 GM/dL (10.7-15.3) 03/19/19 05:43 Hct 37.8 % (32.4-45.2) 03/19/19 05:43 MCV 84.1 fl (80-96) 03/19/19 05:43 MCHC 32.7 g/dl (32.0-36.0) 03/19/19 05:43 RDW 13.5 % (11.6-15.6) 03/19/19 05:43 Plt Count 240 K/MM3 (134-434) 03/19/19 05:43 MPV 8.4 fl (7.5-11.1) 03/19/19 05:43 CMP Sodium 142 mmol/L (136-145) 03/19/19 05:43 Potassium 3.7 mmol/L (3.5-5.1) 03/19/19 05:43 Chloride 111 mmol/L (98-107) H 03/19/19 05:43 Carbon Dioxide 27 mmol/L (21-32) 03/19/19 05:43 Anion Gap 4 MMOL/L (8-16) L 03/19/19 05:43 BUN 8.7 mg/dL (7-18) 03/19/19 05:43 Creatinine 0.8 mg/dL (0.55-1.3) 03/19/19 05:43 Random Glucose 81 mg/dL (74-106) 03/19/19 05:43 Calcium 8.0 mg/dL (8.5-10.1) L 03/19/19 05:43 Total Bilirubin 0.5 mg/dL (0.2-1) 03/19/19 05:43 AST 21 U/L (15-37) 03/19/19 05:43 ALT 33 U/L (13-61) 03/19/19 05:43 Alkaline Phosphatase 37 U/L (45-117) L 03/19/19 05:43 Total Protein 5.8 g/dl (6.4-8.2) L 03/19/19 05:43 Albumin 3.2 g/dl (3.4-5.0) L 03/19/19 05:43 Current Medications Generic Name Dose Route Start Last Admin Trade Name Freq PRN Reason Stop Dose Admin Acetaminophen 1,000 mg 03/18/19 02:36 03/19/19 06:41 Ofirmev Injection - IVPB 1,000 mg Q6H PRN Administration PAIN LEVEL 4 - 6 Albuterol Sulfate 1 amp 03/18/19 02:47 Ventolin 0.083% Nebulizer Soln - NEB Q8H PRN SHORT OF BREATH/WHEEZING Ceftriaxone Sodium 1 gm/ 50 mls @ 100 mls/hr 03/18/19 10:00 03/19/19 13:06 Dextrose IVPB 100 mls/hr DAILY LAURE Administration Protocol Metronidazole 500 mg in 100 mls @ 100 mls/hr 03/18/19 10:00 03/19/19 17:22 Flagyl 500mg Premixed Ivpb - IVPB 100 mls/hr Q8H-IV LAURE Administration Sodium Chloride 1,000 mls @ 125 mls/hr 03/18/19 03:00 03/19/19 17:22 Normal Saline - IV 125 mls/hr ASDIR LAURE Administration Morphine Sulfate 2 mg 03/19/19 09:52 03/19/19 13:06 Morphine Sulfate IVPUSH 2 mg Q3H PRN Administration PAIN LEVEL 6-10 Ondansetron HCl 4 mg 03/19/19 14:00 03/19/19 15:23 Zofran Injection IVPB 4 mg Q4H-IV LAURE Administration Pantoprazole Sodium 40 mg 03/19/19 22:00 Protonix Iv IVPUSH BID LAURE Home Medications Medication Instructions Recorded NK [No Known Home Medication] 03/17/19 Cat Scan: Report Reviewed ( Final Report CT ABDOMEN & PELVIS CT WITH CONTR Show Printer-Friendly Version Patient Name: Enrrique Chetale : 1994 ID: [id number] Study Date: 17-Mar-2019 18:33 Junaid Pavilideandre Name : [facility] Phys: Kandy Gill RESIDENT : Age: 23 Sex: F [employer] Acct: [id number] Loc: [address] Exam Date: 03/17/19 Status: [facility] [place] [id number] Unit Number: [id number] EXAM#: TYPE/EXAM: RESULT: [id number] CT/ABDOMEN PELVIS CT WITH CONTR Abdomen and pelvis CT with contrast Clinical information: left abdominal TTP , ? colitis; not tolerating po Multiplanar imaging was performed following the intravenous administration of nonionic contrast. Enteric contrast was not administered. No evidence of pneumoperitoneum, abscess, free intraperitoneal fluid or bowel obstruction. Bowel evaluation especially of the colon is very limited due to lack of distention. There is possible mild diffuse colonic wall thickening. No definite pericolonic edema or fluid accumulation is seen. There is no gross adnexal pathology allowing for contiguous obscuring nonopacified small bowel loops. The urinary bladder demonstrates no obvious intrinsic or extrinsic CT abnormality. No gross noncontrast small bowel pathology is identified. There is possible partial visualization of the appendix which demonstrates no gross abnormality. No obvious indirect CT signs of acute appendicitis are noted. There is no obvious acute diverticulitis. As also described on recently performed sonography an IUD is seen in place at the level of the lower uterine segment extending into the cervical canal consistent with malposition. The liver, spleen, pancreas , gallbladder, adrenal glands and kidneys demonstrate no discrete abnormality. There is no aortic aneurysm. No gross lymphadenopathy is identified. Numerous bilateral buttock subcutaneous densities are seen which may be on a postsurgical basis. Correlate clinically. The visualized osseous structures demonstrate no obvious CT evidence of acute pathology. Impression: Bowel evaluation is very limited due to lack of distention. There is possible mild diffuse concentric colonic wall thickening on the basis of acute colitis (versus representing artifactual mild thickening due to underdistention). IUD malposition. Reported By: Major Regan MD 01/29 Kandy Gill Technologist: Shamar Ayala Transcribed Date /Time: 03/17/192102 Machine Packaging Technician: Major Regan Printed Date/Time: By: Signed by: Major Regan Signed on: 17-Mar-2019 21:04) Assessment and plan: Patient is a 23 year old female no significant PMHx presented with 2 days hx of nausea, nonbloody vomiting, diarrhea (over 10x day), with left sided abdominal pain. Denied any travel hx. #Acute colitis with leukocytoposis(improved from 14K-->5.1 today) - Continue IV antibiotics flagyl and IV ceftriaxone , follow stool culture, wbc, leukocytes, Ova and parasite. Continue IV fluid for hydration , zofran prn if nausea or vomiting , NPO for now, morphine for pain prn. and tylenol if needed. GI consulted and appreciated. advance diet as tolerated. #Displaced IUD on abd/pelvis ct : PATTERN DEVELOPER consulted recommending for her to follow up as an outpatient with her OBGYN and discuss replacing the IUD, ideally under ultrasound guidance to confirm correct placement/position at the uterine fundus. Nothing further to do at this time, IUDs cannot be "adjusted" at bedside. # Hx of Asthma on proventil inh prn. DVT px: early Ambulation
[2019-03-19] MEDS: PANTOPRAZOLE SODIUM 40 MG VIAL IVPUSH SCH (21:44)
[2019-03-20] MEDS: ONDANSETRON 4 MG/2 ML VIAL IVPB SCH ×5 (00:07→14:30)
[2019-03-20] MEDS: SODIUM CHLORIDE 1,000 ML IV SCH (01:34)
[2019-03-20] MEDS: MORPHINE SULFATE 2 MG/ML VIAL IVPUSH PRN (03:41)
[2019-03-20 07:05] LABS: ALBUMIN 3.1 g/dl (3.4-5.0); BILIRUBIN,TOTAL 0.5 mg/dL (0.2-1); BLOOD UREA NITROGEN 6.3 mg/dL (7-18); CALCIUM 8.1 mg/dL (8.5-10.1); CREATININE 0.7 mg/dL (0.55-1.3); POTASSIUM 3.2 mmol/L (3.5-5.1); TOT PROT 5.8 g/dl (6.4-8.2)
[2019-03-20] MEDS ORDERED: POTASSIUM CHLORIDE TABS 20 MEQ TABLET.ER (FP) PO ONE ×2 (07:14→15:29)
[2019-03-20 07:38] LABS: BASO % 0.3 % (0-2.0); EOS % 0.8 % (0-4.5); HEMATOCRIT 37.3 % (32.4-45.2); HEMOGLOBIN 12.3 GM/dL (10.7-15.3); MCH 27.8 pg (25.7-33.7); MCHC 32.9 g/dl (32.0-36.0); MEAN CELL VOLUME 84.3 fl (80-96); MEAN PLT VOLUME 8.6 fl (7.5-11.1); MONO % 12.8 % (3.8-10.2); NEUT % 63.1 % (42.8-82.8); PLATELET COUNT 235 K/MM3 (134-434); RBC 4.43 M/mm3 (3.60-5.2); RDW 13.3 % (11.6-15.6); WHITE BLOOD COUNT 6.4 K/mm3 (4.0-10.0)
[2019-03-20] MEDS ORDERED: cefTRIAXone SODIUM 1 GM VIAL ONE (09:21)
[2019-03-20] MEDS ORDERED: DEXTROSE 5%-WATER - 50 ML IVPB ONE (09:21)
--- NOTE | 2019-03-20 09:27 | PN ---
Physical Exam: SUBJECTIVE: Patient seen and examined. No acute events overnight. Pt reports that abd pain has improved since yesterday. No vomiting or diarrhea episodes in 24 hours. Pt's appetite is improving and she is tolerating full liquids well. OBJECTIVE: Vital Signs Period Temp Pulse Resp BP Sys/Parkinson Pulse Ox Last 24 Hr 98.0 F-99.2 F 56-110 18-22 116-136/62-82 100 GENERAL: The patient is awake, alert, and fully oriented, in no acute distress. HEAD: Normal with no signs of trauma. EYES: PERRL, extraocular movements intact, sclera anicteric, conjunctiva clear. No ptosis. ENT: Ears normal, nares patent, oropharynx clear without exudates, moist mucous membranes. NECK: Trachea midline, full range of motion, supple. LUNGS: Breath sounds equal, clear to auscultation bilaterally, no wheezes, no crackles, no accessory muscle use. HEART: Regular rate and rhythm, S1, S2 without murmur, rub or gallop. ABDOMEN: Soft, nontender, nondistended, normoactive bowel sounds, no guarding, no rebound, no hepatosplenomegaly, no masses. EXTREMITIES: 2+ pulses, warm, well-perfused, no edema. NEUROLOGICAL: Normal speech, gait not observed. PSYCH: Normal mood, normal affect. SKIN: Warm, dry, normal turgor, no rashes or lesions noted Laboratory Results - last 24 hr 03/20/19 03/20/19 05:45 05:45 WBC 6.4 RBC 4.43 Hgb 12.3 Hct 37.3 MCV 84.3 MCH 27.8 MCHC 32.9 RDW 13.3 Plt Count 235 MPV 8.6 Absolute Neuts (auto) 4.1 Neutrophils % 63.1 Lymphocytes % 23.0 Monocytes % 12.8 H Eosinophils % 0.8 Basophils % 0.3 Nucleated RBC % 0 Sodium 139 Potassium 3.2 L Chloride 107 Carbon Dioxide 25 Anion Gap 7 L BUN 6.3 L Creatinine 0.7 Est GFR (CKD-EPI)AfAm 139.57 Est GFR (CKD-EPI)NonAf 120.42 Random Glucose 75 Calcium 8.1 L Total Bilirubin 0.5 AST 17 ALT 29 Alkaline Phosphatase 38 L C-Reactive Protein 0.7 H Total Protein 5.8 L Albumin 3.1 L Active Medications Current Medications Acetaminophen (Ofirmev Injection -) 1,000 mg IVPB Q6H PRN PRN Reason: PAIN LEVEL 4 - 6 Last Admin: 03/19/19 06:41 Dose: 1,000 mg Albuterol Sulfate (Ventolin 0.083% Nebulizer Soln -) 1 amp NEB Q8H PRN PRN Reason: SHORT OF BREATH/WHEEZING Ceftriaxone Sodium 1 gm/ (Dextrose) 50 mls @ 100 mls/hr IVPB DAILY LAURE; Protocol Last Admin: 03/19/19 13:06 Dose: 100 mls/hr Metronidazole (Flagyl 500mg Premixed Ivpb -) 500 mg in 100 mls @ 100 mls/hr IVPB Q8H-IV LAURE Last Admin: 03/20/19 01:32 Dose: 100 mls/hr Sodium Chloride (Normal Saline -) 1,000 mls @ 125 mls/hr IV ASDIR LAURE Last Admin: 03/20/19 01:34 Dose: 125 mls/hr Dextrose/Sodium Chloride (D5-1/2ns+40 Meq Kcl -) 40 meq in 1,000 mls @ 125 mls/ hr IV ASDIR LAURE Stop: 03/21/19 17:29 Morphine Sulfate (Morphine Sulfate) 2 mg IVPUSH Q3H PRN PRN Reason: PAIN LEVEL 6-10 Last Admin: 03/20/19 03:41 Dose: 2 mg Ondansetron HCl (Zofran Injection) 4 mg IVPB Q4H-IV [facility] Last Admin: 03/20/19 06:01 Dose: Not Given Pantoprazole Sodium (Protonix Iv) 40 mg IVPUSH BID [facility] Last Admin: 03/19/19 21:44 Dose: 40 mg ASSESSMENT/PLAN: Pt is a 23 y/o F with PMHx of mild asthma (no home meds) who presents with persistent nausea, vomiting, and diarrhea. #Colitis - Pt on IV flagyl, rocephin (day 3), IV zofran 4mg prn for nausea, morphine 1mg IV push q4hs prn for pain - Advance to soft diet, lactose free per Dr. Ricks - Norovirus stool PCR, stool O&P pending, urine cx neg - WBC normalized 14.6 --> 6.4 #IUD malposition - OBGYN (Dr. Calix) saw pt and recommends f/u as an outpatient with her OBGYN to replace the IUD. - G/C/trich pending - UA cx negative. #Asthma - c/w albuterol as prescribed. - no acute exacerbations - SaO2 has been normal throughout admission #FEN - IV D5-1/2 NS + 40Meq KCl - will monitor lytes - lactose free diet for 7 days, clear liquid diet. #DVT prophylaxis - SCD's ordered to be placed b/l, low risk for DVT. Dispo: spoke to parents and they are okay with our plan moving forward treating her colitis. Likely DC in am if pt continues to improve and tolerates diet. Visit type - Emergency Visit Emergency Visit: Yes ED Registration Date: 03/18/19 Care time: The patient presented to the Emergency Department on the above date and was hospitalized for further evaluation of their emergent condition. - New Patient This patient is new to me today: No - Critical Care Critical Care patient: No ATTENDING PHYSICIAN STATEMENT I saw and evaluated the patient. I reviewed the resident's note and discussed the case with the resident. I agree with the resident's findings and plan as documented. SUBJECTIVE: OBJECTIVE: ASSESSMENT AND PLAN:
[2019-03-20] MEDS: CEFTRIAXONE 1 GM in DEXTROSE 5%-WATER - 50 ML IVPB SCH (09:30)
[2019-03-20] MEDS ORDERED: D5-1/2NS+40 MEQ KCL - 40 MEQ/1,000 ML INFUS.BAG IV SCH (09:30)
[2019-03-20] MEDS: PANTOPRAZOLE SODIUM 40 MG VIAL IVPUSH SCH (09:32)
--- NOTE | 2019-03-20 14:57 | DS ---
Physical Exam: SUBJECTIVE: Patient seen and examined. No acute events overnight. Pt reports that abd pain has improved since yesterday. No vomiting or diarrhea episodes in 24 hours. Pt's appetite is improving and she is tolerating full liquids well. OBJECTIVE: Vital Signs Period Temp Pulse Resp BP Sys/Parkinson Pulse Ox Last 24 Hr 98.0 F-99.2 F 56-66 17-20 116-124/62-74 100 PHYSICAL EXAM GENERAL: The patient is awake, alert, and fully oriented, in no acute distress. HEAD: Normal with no signs of trauma. EYES: PERRL, extraocular movements intact, sclera anicteric, conjunctiva clear. ENT: Ears normal, nares patent, oropharynx clear without exudates, moist mucous membranes. NECK: Trachea midline, full range of motion, supple. LUNGS: Breath sounds equal, clear to auscultation bilaterally, no wheezes, no crackles, no accessory muscle use. HEART: Regular rate and rhythm, S1, S2 without murmur, rub or gallop. ABDOMEN: Soft, nontender, nondistended, normoactive bowel sounds, no guarding, no rebound, no hepatosplenomegaly, no masses. EXTREMITIES: 2+ pulses, warm, well-perfused, no edema. NEUROLOGICAL: Normal speech, gait not observed. PSYCH: Normal mood, normal affect. SKIN: Warm, dry, normal turgor, no rashes or lesions noted. LABS Laboratory Results - last 24 hr 03/20/19 03/20/19 05:45 05:45 WBC 6.4 RBC 4.43 Hgb 12.3 Hct 37.3 MCV 84.3 MCH 27.8 MCHC 32.9 RDW 13.3 Plt Count 235 MPV 8.6 Absolute Neuts (auto) 4.1 Neutrophils % 63.1 Lymphocytes % 23.0 Monocytes % 12.8 H Eosinophils % 0.8 Basophils % 0.3 Nucleated RBC % 0 Sodium 139 Potassium 3.2 L Chloride 107 Carbon Dioxide 25 Anion Gap 7 L BUN 6.3 L Creatinine 0.7 Est GFR (CKD-EPI)AfAm 139.57 Est GFR (CKD-EPI)NonAf 120.42 Random Glucose 75 Calcium 8.1 L Total Bilirubin 0.5 AST 17 ALT 29 Alkaline Phosphatase 38 L C-Reactive Protein 0.7 H Total Protein 5.8 L Albumin 3.1 L HOSPITAL COURSE: Date of Admission:03/18/19 Patient is a 23 y/o F who was admitted for intractable vomiting and diarrhea and was diagnosed with acute colitis per CT. She was treated with antibiotics, fluids, and nausea and pain medications. Pt did not have any fevers during admission and her WBC normalized. Her symptoms improved and she is tolerating a full diet well. She has had no vomiting or diarrhea episodes in 24 hours. Pt's vitals are stable, she denies any pain or complaints, and she is clinically stable to be discharged with home antibiotics. A transvaginal US showed that her IUD is malpositioned. OBGYN was consulted and gave her recommendations to f/u with her interior design professor as outpatient to have her IUD repositioned. CT abd: Diffuse colonic distension suggestive of acute colitis. Transvaginal US: IUD malpositioned Date of Discharge: 03/20/19 Minutes to complete discharge: 45 Discharge Summary Reason For Visit: COLITIS,INTRACTABLE VOMITING Current Active Problems Colitis (Acute) Condition: Improved - Instructions Diet, Activity, Other Instructions: You were admitted to the hospital for vomiting, diarrhea, and abdominal pain. We treated your symptoms with antibiotics, fluids, and pain medication and your symptoms improved. To complete treatment continue antibiotics at home as follows : - Ceftin 500mg 2x per day for 5 more days (2 pill per day) - Flagyl 250mg 3x times a day for 5 days (1 pill in the morning, afternoon, and dinner each day). Do not have any alcohol with this medication even cough medication that has alcohol. You should maintain a lactose free diet and avoid carbonated drinks for the next 7 days. Avoid simple carbohydrates, cauliflower, broccoli , sugar, flour. or any food that makes you gassy. While you were here, a CT of your abdomen showed that your IUD is displaced. You should follow up with your OBGYN and discuss replacing the IUD upon discharge SOON POSSIBLE . There is nothing further to do at this time as IUDs cannot be adjusted at bedside. Please use other measures while your IUD is being replaced, SINCE YOU HAVE HIGH CHANCE OF BEING IF NOT POSITIONED PROPERLY. You should follow up with your primary care provider in one week. You should return to the Emergency Department if you have vomiting, diarrhea, abdominal pain, or worsening of any symptoms. Referrals: Eden Vargas MD [Staff Physician] - 1 Week Disposition: HOME - Home Medications Comprehensive Discharge Medication List: Ambulatory Orders Cefuroxime Axetil [Ceftin -] 500 mg PO BID #10 tablet 03/20/19 metroNIDAZOLE [Flagyl -] 250 mg PO TID #15 tablet 03/20/19 This patient is new to me today: No Emergency Visit: Yes ED Registration Date: 03/18/19 Care time: The patient presented to the Emergency Department on the above date and was hospitalized for further evaluation of their emergent condition. Critical Care patient: No - Discharge Referral Referred to [facility] No ATTENDING PHYSICIAN STATEMENT I saw and evaluated the patient. I reviewed the resident's note and discussed the case with the resident. I agree with the resident's findings and plan as documented. SUBJECTIVE: OBJECTIVE: ASSESSMENT AND PLAN:
--- NOTE | 2019-03-20 15:00 | PN ---
Teaching Attending Note Name of Resident: Catherine Bocanegra ATTENDING PHYSICIAN STATEMENT I saw and evaluated the patient. I reviewed the resident's note and discussed the case with the resident. I agree with the resident's findings and plan as documented. SUBJECTIVE: Patient is comfortable with no acute distress, no shortness of breath. OBJECTIVE: Vital Signs Temperature 98.0 F 03/20/19 09:43 Pulse Rate 59 L 03/20/19 09:43 Respiratory Rate 17 03/20/19 09:43 Blood Pressure 124/72 03/20/19 09:43 O2 Sat by Pulse Oximetry (%) 100 03/19/19 21:00 GENERAL: The patient is awake, alert, and fully oriented, in mild distress. HEAD: Normal with no signs of trauma. EYES: PERRL, extraocular movements intact, sclera anicteric, conjunctiva clear. ENT: Ears normal, oropharynx clear without exudates, moist mucous membranes. NECK: Trachea midline, full range of motion, supple. LUNGS: Breath sounds equal, clear to auscultation bilaterally, no wheezes, no crackles, no accessory muscle use. HEART: Regular rate and rhythm, S1, S2 without murmur, rub or gallop. ABDOMEN: Soft,diffuse abdominal pain, ND, normoactive bowel sounds, positive voluntary guarding, no rebound, no hepatosplenomegaly, no masses. EXTREMITIES: 2+ pulses, warm, well-perfused, no edema. NEUROLOGICAL: Cranial nerves II through XII grossly intact. Normal speech, gait not observed. PSYCH: Normal mood, normal affect. SKIN: Warm, dry, normal turgor, no rashes, patient has a huy tattoo on her left abdominal area. CBCD WBC 6.4 K/mm3 (4.0-10.0) 03/20/19 05:45 RBC 4.43 M/mm3 (3.60-5.2) 03/20/19 05:45 Hgb 12.3 GM/dL (10.7-15.3) 03/20/19 05:45 Hct 37.3 % (32.4-45.2) 03/20/19 05:45 MCV 84.3 fl (80-96) 03/20/19 05:45 MCHC 32.9 g/dl (32.0-36.0) 03/20/19 05:45 RDW 13.3 % (11.6-15.6) 03/20/19 05:45 Plt Count 235 K/MM3 (134-434) 03/20/19 05:45 MPV 8.6 fl (7.5-11.1) 03/20/19 05:45 CMP Sodium 139 mmol/L (136-145) 03/20/19 05:45 Potassium 3.2 mmol/L (3.5-5.1) L 03/20/19 05:45 Chloride 107 mmol/L (98-107) 03/20/19 05:45 Carbon Dioxide 25 mmol/L (21-32) 03/20/19 05:45 Anion Gap 7 MMOL/L (8-16) L 03/20/19 05:45 BUN 6.3 mg/dL (7-18) L 03/20/19 05:45 Creatinine 0.7 mg/dL (0.55-1.3) 03/20/19 05:45 Random Glucose 75 mg/dL (74-106) 03/20/19 05:45 Calcium 8.1 mg/dL (8.5-10.1) L 03/20/19 05:45 Total Bilirubin 0.5 mg/dL (0.2-1) 03/20/19 05:45 AST 17 U/L (15-37) 03/20/19 05:45 ALT 29 U/L (13-61) 03/20/19 05:45 Alkaline Phosphatase 38 U/L (45-117) L 03/20/19 05:45 Total Protein 5.8 g/dl (6.4-8.2) L 03/20/19 05:45 Albumin 3.1 g/dl (3.4-5.0) L 03/20/19 05:45 Current Medications Generic Name Dose Route Start Last Admin Trade Name Freq PRN Reason Stop Dose Admin Acetaminophen 1,000 mg 03/18/19 02:36 03/19/19 06:41 Ofirmev Injection - IVPB 1,000 mg Q6H PRN Administration PAIN LEVEL 4 - 6 Albuterol Sulfate 1 amp 03/18/19 02:47 Ventolin 0.083% Nebulizer Soln - NEB Q8H PRN SHORT OF BREATH/WHEEZING Ceftriaxone Sodium 1 gm/ 50 mls @ 100 mls/hr 03/18/19 10:00 03/20/19 09:30 Dextrose IVPB 100 mls/hr DAILY LAURE Administration Protocol Metronidazole 500 mg in 100 mls @ 100 mls/hr 03/18/19 10:00 03/20/19 09:31 Flagyl 500mg Premixed Ivpb - IVPB 100 mls/hr Q8H-IV LAURE Administration Sodium Chloride 1,000 mls @ 125 mls/hr 03/18/19 03:00 03/20/19 01:34 Normal Saline - IV 125 mls/hr ASDIR LAURE Administration Dextrose/Sodium Chloride 40 meq in 1,000 mls @ 125 mls/hr 03/20/19 09:30 05/01 11:03 D5-1/2ns+40 Meq Kcl - IV 03/21/19 17:29 125 mls/hr ASDIR LAURE Administration Morphine Sulfate 2 mg 03/19/19 09:52 03/20/19 03:41 Morphine Sulfate IVPUSH 2 mg Q3H PRN Administration PAIN LEVEL 6-10 Ondansetron HCl 4 mg 03/19/19 14:00 03/20/19 11:04 Zofran Injection IVPB Not Given Q4H-IV LAURE Pantoprazole Sodium 40 mg 03/19/19 22:00 03/20/19 09:32 Protonix Iv IVPUSH 40 mg BID LAURE Administration Home Medications Medication Instructions Recorded Cefuroxime Axetil [Ceftin -] 500 mg PO BID #10 tablet 03/20/19 metroNIDAZOLE [Flagyl -] 250 mg PO TID #15 tablet 03/20/19 Cat Scan: Report Reviewed ( Final Report CT ABDOMEN & PELVIS CT WITH CONTR Show Printer-Friendly Version Patient Name: Manie Che : 1994 ID: [id number] Study Date: 17-Mar-2019 18:33 Junaid Isaura Name : [facility] DEPARTMENT OF RADIOLOGY Phys: Kandy Gill RESIDENT : Age: 23 Sex: F [facility] Acct: [id number] Loc: [address] Exam Date: 03/17/19 Status: [facility] [place] [address] Unit Number: [id number] EXAM#: TYPE/EXAM: RESULT: [id number] CT/ABDOMEN PELVIS CT WITH CONTR Abdomen and pelvis CT with contrast Clinical information: left abdominal TTP , ? colitis; not tolerating po Multiplanar imaging was performed following the intravenous administration of nonionic contrast. Enteric contrast was not administered. No evidence of pneumoperitoneum, abscess, free intraperitoneal fluid or bowel obstruction. Bowel evaluation especially of the colon is very limited due to lack of distention. There is possible mild diffuse colonic wall thickening. No definite pericolonic edema or fluid accumulation is seen. There is no gross adnexal pathology allowing for contiguous obscuring nonopacified small bowel loops. The urinary bladder demonstrates no obvious intrinsic or extrinsic CT abnormality. No gross noncontrast small bowel pathology is identified. There is possible partial visualization of the appendix which demonstrates no gross abnormality. No obvious indirect CT signs of acute appendicitis are noted. There is no obvious acute diverticulitis. As also described on recently performed sonography an IUD is seen in place at the level of the lower uterine segment extending into the cervical canal consistent with malposition. The liver, spleen, pancreas , gallbladder, adrenal glands and kidneys demonstrate no discrete abnormality. There is no aortic aneurysm. No gross lymphadenopathy is identified. Numerous bilateral buttock subcutaneous densities are seen which may be on a postsurgical basis. Correlate clinically. The visualized osseous structures demonstrate no obvious CT evidence of acute pathology. Impression: Bowel evaluation is very limited due to lack of distention. There is possible mild diffuse concentric colonic wall thickening on the basis of acute colitis (versus representing artifactual mild thickening due to underdistention). IUD malposition. Reported By: Major Regan MD 01/29 Kandy Gill Technologist: Shamar Ayala Transcribed Date /Time: 03/17/192102 Collar Feller: Major Regan Printed Date/Time: By:Signed by: Major Regan Signed on: 17-Mar-2019 21:04) Assessment and plan: Patient is a 23 year old female no significant PMHx presented with 2 days hx of nausea, nonbloody vomiting, diarrhea (over 10x day), with left sided abdominal pain. Denied any travel hx. #Acute colitis with leukocytoposis (improved from 14K-->5.1 today-->6.4 ) - IV antibiotics flagyl and IV ceftriaxone FOLLOWED BY ORAL CEFTIN AND FLAGYL TOTAL OF 7 DAYS, complete IVF with potassium 40meq Continue IV fluid for hydration , zofran prn if nausea or vomiting , tolerated diet soft , no further pain medication is used. GI consult appreciated. #Displaced IUD on abd/pelvis ct : [employer] consulted recommending for her to follow up as an outpatient with her OBGYN and discuss replacing the IUD, ideally under ultrasound guidance to confirm correct placement/position at the uterine fundus. Nothing further to do at this time, IUDs cannot be "adjusted" at bedside. # Hx of Asthma on proventil inh prn. You should follow up with your OBGYN and discuss replacing the IUD upon discharge SOON POSSIBLE . There is nothing further to do at this time as IUDs cannot be adjusted at bedside. Please use other measures while your IUD is being replaced, SINCE YOU HAVE HIGH CHANCE OF BEING IF NOT re - POSITIONED PROPERLY.
[2019-03-20 15:17] VITALS: BP 121/80; PULSE 66; TEMP 98.4
== END 2019-03-20 16:38 | disposition home or self-care (01) | DRG 249 ==
LOC: JER 12:07 → JERBED 21:22 → J5S 03-18 00:24 → OBSVTOIN 03-18 09:06
PROVIDERS: ADMIT Internal Medicine; ATTEND Internal Medicine
DX: A09 Infectious gastroenteritis and colitis, unspecified (principal); J45.20 Mild intermittent asthma, uncomplicated; T83.32XA Displacement of intrauterine contraceptive device, initial encounter; Y83.9 Surgical procedure, unspecified as the cause of abnormal reaction of the patient, or of later complication, without mention of misadventure at the time of the procedure; D72.829 Elevated white blood cell count, unspecified
CPT/HCPCS: 36415; 71045-TC-FY; 74177-TC; 76830-TC; 80053; 81003; 83735; 84100; 84703; 85025; 86140; 87086; 87177; 87209; 87491; 87591; 87661; 87798; 93005; 93010; 99284-25; G0378; J0131; J7030

== ENCOUNTER 2023-02-03 10:39 | Emergency (ER) | payer BC, OTHER ==
[2023-02-03 10:54] VITALS: BMI 22.3
[2023-02-03] MEDS ORDERED: FAMOTIDINE 20 MG/50 ML IVPB 20 MG/50 ML MG IVPB ONE ×2 (11:14→11:19)
[2023-02-03] MEDS ORDERED: ONDANSETRON 4 MG/2 ML VIAL IVPUSH ONE (11:15)
[2023-02-03] MEDS ORDERED: METOCLOPRAMIDE HCL INJECTION 10 MG/2 ML VIAL IVPUSH ONE ×2 (11:16→12:19)
[2023-02-03] MEDS ORDERED: SODIUM CHLORIDE 1,000 ML IV STA (11:17)
[2023-02-03] MEDS ORDERED: METOCLOPRAMIDE HCL INJECTION 10 MG/2 ML VIAL ONE ×2 (11:18→12:26)
[2023-02-03] MEDS ORDERED: SUCRALFATE 1 GM/10 ML UNIT DOSE CUPS PO ONE ×2 (11:48→12:19)
[2023-02-03] MEDS ORDERED: MAG HYDROX/AL HYDROX/SIMETH -MYLANTA- ORAL SUSPENSION PO ONE (11:51)
[2023-02-03] MEDS ORDERED: MAG HYDROX/AL HYDROX/SIMETH 30 ML UNIT-DOSE CUP ONE ×3 (11:56→13:29)
[2023-02-03] MEDS ORDERED: SUCRALFATE 1 GM TABLET (FP) ONE ×2 (11:56→12:26)
[2023-02-03] MEDS ORDERED: MAG HYDROX/AL HYDROX/SIMETH 30 ML UNIT-DOSE CUP PO ONE (12:19)
[2023-02-03 12:27] LABS: BASO % 0.4 % (0-2.0); HEMATOCRIT 41.1 % (32.4-45.2); HEMOGLOBIN 13.9 GM/dL (10.7-15.3); LYMPH % 28.8 % (8-40); MCH 27.3 pg (25.7-33.7); MCHC 33.8 g/dl (32.0-36.0); MEAN CELL VOLUME 80.7 fl (80-96); MEAN PLT VOLUME 8.8 fl (7.5-11.1); NEUT % 62.8 % (42.8-82.8); PLATELET COUNT 319 10^3/uL (134-434); RBC 5.09 M/mm3 (3.60-5.2); WHITE BLOOD COUNT 10.1 K/mm3 (4.0-10.0)
[2023-02-03 12:34] LABS: POTASSIUM 3.6 mmol/L (3.5-5.1)
[2023-02-03 12:37] LABS: BLOOD UREA NITROGEN 14.1 mg/dL (7-18); MAGNESIUM 1.8 mg/dL (1.8-2.4)
[2023-02-03 12:40] LABS: CREATININE 0.9 mg/dL (0.55-1.3)
[2023-02-03 12:41] LABS: BILIRUBIN,TOTAL 0.8 mg/dL (0.2-1); TOT PROT 7.7 g/dl (6.4-8.2)
[2023-02-03] MEDS ORDERED: ACETAMINOPHEN 1000 MG/100 ML BAG IVPB ONE (14:28)
[2023-02-03] MEDS ORDERED: ACETAMINOPHEN INJECTION 100 ML IVPB ONE (14:55)
[2023-02-03 14:59] VITALS: BP 119/79; PULSE 71; RESP 20; TEMP 98.4
[2023-02-03] MEDS ORDERED: HALOPERIDOL LACTATE 5 MG/ML IM ONE ×2 (16:04→16:12)
== END 2023-02-03 19:49 | disposition home or self-care (01) ==
LOC: JER 10:39
PROC: 3E033GC Introduction of Other Therapeutic Substance into Peripheral Vein, Percutaneous Approach (ICD-10-PCS; principal; 2023-02-03)
PROC: 3E033NZ Introduction of Analgesics, Hypnotics, Sedatives into Peripheral Vein, Percutaneous Approach (ICD-10-PCS; 2023-02-03)
PROC: 3E033GC Introduction of Other Therapeutic Substance into Peripheral Vein, Percutaneous Approach (ICD-10-PCS; 2023-02-03)
PROC: 3E033GC Introduction of Other Therapeutic Substance into Peripheral Vein, Percutaneous Approach (ICD-10-PCS; 2023-02-03)
PROC: 3E033GC Introduction of Other Therapeutic Substance into Peripheral Vein, Percutaneous Approach (ICD-10-PCS; 2023-02-03)
PROC: 3E023GC Introduction of Other Therapeutic Substance into Muscle, Percutaneous Approach (ICD-10-PCS; 2023-02-03)
PROC: 3E0337Z Introduction of Electrolytic and Water Balance Substance into Peripheral Vein, Percutaneous Approach (ICD-10-PCS; 2023-02-03)
DX: R10.13 Epigastric pain (principal); R11.2 Nausea with vomiting, unspecified; K29.70 Gastritis, unspecified, without bleeding; R10.12 Left upper quadrant pain
CPT/HCPCS: 36415; 74177-TC; 80053; 83690; 83735; 84703; 85025; 93005; 93010; 99285-25; Q9967

== ENCOUNTER 2023-10-08 12:29 | Emergency (ER) | payer OTHER ==
[2023-10-08 12:54] VITALS: PULSE 60; TEMP 98.4; BMI 22.3
[2023-10-08] MEDS ORDERED: ONDANSETRON *ODT* 4 MG TABLET SL ONE (13:05)
[2023-10-08] MEDS ORDERED: LACTATED RINGERS SOLUTION 1000 ML INFUS.BAG IV ONE (13:05)
[2023-10-08] MEDS ORDERED: FAMOTIDINE 20 MG/50 ML IVPB 20 MG/50 ML MG IVPB ONE ×2 (13:05→13:26)
[2023-10-08] MEDS ORDERED: MAG HYDROX/AL HYDROX/SIMETH 30 ML UNIT-DOSE CUP PO ONE (13:05)
[2023-10-08] MEDS ORDERED: SUCRALFATE 1 GM/10 ML UNIT DOSE CUPS PO ONE (13:06)
[2023-10-08] MEDS ORDERED: ACETAMINOPHEN 1000 MG/100 ML BAG IVPB ONE (13:15)
[2023-10-08] MEDS ORDERED: ACETAMINOPHEN INJECTION 100 ML IVPB ONE (13:25)
[2023-10-08] MEDS ORDERED: ONDANSETRON 4 MG/2 ML VIAL ONE (13:25)
[2023-10-08 13:32] LABS: BASO % 0.3 % (0-2.0); EOS % 0.1 % (0-4.5); HEMATOCRIT 40.7 % (32.4-45.2); HEMOGLOBIN 13.7 GM/dL (10.7-15.3); LYMPH % 17.2 % (8-40); MCH 27.3 pg (25.7-33.7); MCHC 33.6 g/dl (32.0-36.0); MEAN CELL VOLUME 81.3 fl (80-96); MEAN PLT VOLUME 8.6 fl (7.5-11.1); MONO % 9.9 % (3.8-10.2); NEUT % 72.5 % (42.8-82.8); PLATELET COUNT 268 10^3/uL (134-434); WHITE BLOOD COUNT 7.7 K/mm3 (4.0-10.0)
[2023-10-08] MEDS ORDERED: MAG HYDROX/AL HYDROX/SIMETH 30 ML UNIT-DOSE CUP ONE (14:20)
[2023-10-08] MEDS ORDERED: HALOPERIDOL LACTATE 5 MG/ML IVPUSH ONE (14:49)
[2023-10-08] MEDS ORDERED: HALOPERIDOL LACTATE 5 MG/ML ONE (15:08)
[2023-10-08 15:09] LABS: POTASSIUM 3.3 mmol/L (3.5-5.1)
[2023-10-08 15:11] LABS: BLOOD UREA NITROGEN 13.4 mg/dL (7-18); CALCIUM 8.6 mg/dL (8.5-10.1)
[2023-10-08 15:12] LABS: ALBUMIN 3.3 g/dl (3.4-5.0); MAGNESIUM 1.8 mg/dL (1.8-2.4)
[2023-10-08 15:14] LABS: CREATININE 0.7 mg/dL (0.55-1.3)
[2023-10-08 15:16] LABS: TOT PROT 6.7 g/dl (6.4-8.2)
[2023-10-08] MEDS ORDERED: KCL 10 MEQ IVPB 10 MEQ/100 ML INFUS.BAG IVPB ONE ×2 (15:34→16:51)
[2023-10-08] MEDS: KCL 10 MEQ IVPB 10 MEQ/100 ML INFUS.BAG IVPB SCH ×3 (15:42→16:56)
[2023-10-08 16:29] VITALS: BP 115/72; RESP 18
== END 2023-10-08 18:15 | disposition home or self-care (01) ==
LOC: JER 12:29
PROC: 3E033GC Introduction of Other Therapeutic Substance into Peripheral Vein, Percutaneous Approach (ICD-10-PCS; principal; 2023-10-08)
PROC: 3E033GC Introduction of Other Therapeutic Substance into Peripheral Vein, Percutaneous Approach (ICD-10-PCS; 2023-10-08)
PROC: 3E033NZ Introduction of Analgesics, Hypnotics, Sedatives into Peripheral Vein, Percutaneous Approach (ICD-10-PCS; 2023-10-08)
DX: R10.9 Unspecified abdominal pain (principal); R11.2 Nausea with vomiting, unspecified
CPT/HCPCS: 36415; 80053; 83605; 83690; 83735; 84703; 85025; 93005; 93010; 99284-25; Q0162

== ENCOUNTER 2023-10-09 10:17 | Emergency (ER) | payer OTHER ==
[2023-10-09 10:25] VITALS: RESP 18; TEMP 98; BMI 22.3
[2023-10-09 11:49] VITALS: BP 120/70; PULSE 72
== END 2023-10-09 13:01 | disposition home or self-care (01) ==
LOC: JER 10:17
PROC: 3E033GC Introduction of Other Therapeutic Substance into Peripheral Vein, Percutaneous Approach (ICD-10-PCS; principal; 2023-10-09)
DX: G24.9 Dystonia, unspecified (principal); K14.8 Other diseases of tongue; R47.9 Unspecified speech disturbances
CPT/HCPCS: 99284-25